=== PATIENT | male | born 1970 | race African-American/Black ===

== ENCOUNTER 2018-12-16 19:09 | Inpatient (IN) ==
[2018-12-16] MEDS ORDERED: SODIUM CHLORIDE 0.9% 1,000 ML IV STA (19:45)
[2018-12-16] MEDS ORDERED: METOPROLOL TARTRATE 5 MG/5 ML VIAL IV STA (19:46)
[2018-12-16] MEDS ORDERED: ALBUTEROL/IPRATROPIUM 3 ML NEB RESP TX STA (19:46)
[2018-12-16] MEDS ORDERED: ACETAMINOPHEN 500 MG TABLET PO STA (19:46)
[2018-12-16 19:52] LABS: Basophils % 0.3 % (0.0-0.8); Eosinophils % 0.1 % (0.00-10.9); Hematocrit 48.7 VOL% (42.0-52.0); Hemoglobin 15.7 GM/DL (14.0-18.0); Immature Granulocytes % 0.3 %; Immature Granulocytes Absolute 0.04 #; Lymphocytes # 0.7 10*3/uL (1.4-4.0); Lymphocytes % 5.9 % (21.2-54.2); Mean Corpuscular HGB Conc 32.2 GM/DL (32-36); Mean Corpuscular Hemoglobin 29 PG (27-34); Mean Corpuscular Volume 88.7 FL (87-102); Mean Platelet Volume 10.7 FL (9.6-12.0); Monocytes # 0.8 10*3/uL (0.11-0.8); Monocytes % 6.8 % (1.7-12.7); Neutrophils # 10.2 10*3/uL (1.4-7.4); Neutrophils % 86.6 % (38.7-73.9); Platelet Count 220 T/CUMM (130-400); Red Blood Count 5.49 MC/CUMM (3.8-5.5); Red Cell Distribution Width 13.9 % (9.3-17.3); White Blood Count 11.7 T/CUMM (4-12)
[2018-12-16 20:17] LABS: Albumin 3.9 G/DL (3.4-5.0); Bilirubin,Total 0.6 MG/DL (0.2-1.0); Calcium 9.1 MG/DL (8.5-10.1); Osmolality,Calculated 266.4 MOS/KG (273-304); Potassium 4.3 MMOL/L (3.5-5.1); Total Protein 9.2 G/DL (6.4-8.3)
[2018-12-16 20:21] LABS: ABG Base Excess 3.7 MMOL/L (-2.5-2.5); ABG HCO3 27.5 MMOL/L (20-26); ABG Oxygen Saturation 92.2 % (95-100); ABG PCO2 43.6 MM HG (35-48); ABG PH 7.426 (7.35-7.45); ABG PO2 65.3 MM HG (80-95); ABG TCO2 24.2 MMOL/L (23-27); Allen Test Positive
[2018-12-16] MEDS ORDERED: LEVOFLOXACIN INJ 500 MG in PREMIX 1 EACH IV STA (21:26)
[2018-12-16] MEDS ORDERED: ONDANSETRON 4 MG/2 ML VIAL IV PRN (22:03)
[2018-12-16] MEDS ORDERED: ACETAMINOPHEN 325 MG TABLET PO PRN (22:03)
[2018-12-16] MEDS ORDERED: cloNIDine 0.1 MG TABLET PO PRN (23:36)
[2018-12-17 03:22] LABS: Apearance,Urine CLEAR (Clear); Bilirubin,Urine Negative (Negative); Blood, Urine Negative (Negative); Glucose,Urine (UA) Negative (Negative); Ketones,Urine Negative (Negative); Mucus,Urine Occasional /LPF (Occasional); Nitrite,Urine Negative (Negative); Protein,Urine Negative; RBC,Urine <1 /HPF (0-4); Urine Color Yellow (Yellow); Urine Specific Gravity 1.036 (1.001-1.035); WBC,Urine <1 /HPF (0-6)
[2018-12-17] MEDS: ALBUTEROL/IPRATROPIUM 3 ML NEB RESP TX SCH ×6 (03:40→23:59)
[2018-12-17 04:26] LABS: Basophils % 0.2 % (0.0-0.8); Eosinophils % 0.1 % (0.00-10.9); Hematocrit 46.4 VOL% (42.0-52.0); Hemoglobin 14.9 GM/DL (14.0-18.0); Immature Granulocytes % 0.8 %; Immature Granulocytes Absolute 0.09 #; Lymphocytes % 8.9 % (21.2-54.2); Mean Corpuscular HGB Conc 32.1 GM/DL (32-36); Mean Corpuscular Hemoglobin 29 PG (27-34); Mean Corpuscular Volume 88.7 FL (87-102); Mean Platelet Volume 10.8 FL (9.6-12.0); Monocytes % 9.1 % (1.7-12.7); Neutrophils # 9.1 10*3/uL (1.4-7.4); Neutrophils % 80.9 % (38.7-73.9); Platelet Count 200 T/CUMM (130-400); Red Blood Count 5.23 MC/CUMM (3.8-5.5); Red Cell Distribution Width 14.2 % (9.3-17.3); White Blood Count 11.3 T/CUMM (4-12)
[2018-12-17 04:49] LABS: Calcium 8.9 MG/DL (8.5-10.1); Osmolality,Calculated 262.5 MOS/KG (273-304); Potassium 3.8 MMOL/L (3.5-5.1)
[2018-12-17 04:53] LABS: CKMB % 1.1 %; Troponin I < 0.015 NG/ML (0.00-0.045)
[2018-12-17 09:32] LABS: CKMB % 1.1 %; Troponin I < 0.015 NG/ML (0.00-0.045)
[2018-12-17] MEDS: METOPROLOL TARTRATE 25 MG TABLET PO SCH ×2 (09:36→22:02)
[2018-12-17] MEDS: PANTOPRAZOLE 40 MG TABLET PO SCH (09:36)
[2018-12-17] MEDS: LEVOFLOXACIN INJ 500 MG in PREMIX 1 EACH IV SCH (22:24)
[2018-12-18] MEDS: ALBUTEROL/IPRATROPIUM 3 ML NEB RESP TX SCH ×6 (03:31→23:29)
[2018-12-18 05:48] LABS: Basophils % 0.2 % (0.0-0.8); Eosinophils % 0.6 % (0.00-10.9); Hemoglobin 14.3 GM/DL (14.0-18.0); Immature Granulocytes % 0.5 %; Immature Granulocytes Absolute 0.03 #; Lymphocytes # 1.1 10*3/uL (1.4-4.0); Lymphocytes % 15.9 % (21.2-54.2); Mean Corpuscular HGB Conc 31.8 GM/DL (32-36); Mean Corpuscular Hemoglobin 29 PG (27-34); Mean Platelet Volume 10.8 FL (9.6-12.0); Monocytes # 0.7 10*3/uL (0.11-0.8); Monocytes % 11.2 % (1.7-12.7); Neutrophils # 4.7 10*3/uL (1.4-7.4); Neutrophils % 71.6 % (38.7-73.9); Platelet Count 217 T/CUMM (130-400); Red Cell Distribution Width 13.8 % (9.3-17.3); White Blood Count 6.6 T/CUMM (4-12)
[2018-12-18 06:09] LABS: Calcium 9.3 MG/DL (8.5-10.1); Osmolality,Calculated 263.5 MOS/KG (273-304); Potassium 3.7 MMOL/L (3.5-5.1)
[2018-12-18] MEDS ORDERED: FUROSEMIDE 40 MG/4 ML VIAL IV ONE (09:15)
[2018-12-18] MEDS ORDERED: SACUBITRIL/VALSARTAN 49-51 MG TABLET PO SCH (09:30)
[2018-12-18] MEDS ORDERED: CARVEDILOL 3.125 MG TABLET PO SCH (09:30)
[2018-12-18] MEDS: PANTOPRAZOLE 40 MG TABLET PO SCH (09:35)
[2018-12-18 11:45] LABS: Amylase 45 U/L (25-115); Troponin I < 0.015 NG/ML (0.00-0.045)
[2018-12-18] MEDS ORDERED: METHOCARBAMOL 500 MG TABLET PO PRN (15:53)
[2018-12-18] MEDS ORDERED: FUROSEMIDE 40 MG TABLET PO SCH (16:00)
[2018-12-18] MEDS: METOPROLOL TARTRATE 25 MG TABLET PO SCH (20:20)
[2018-12-18] MEDS: LEVOFLOXACIN INJ 500 MG in PREMIX 1 EACH IV SCH (22:21)
[2018-12-19 02:25] LABS: Basophils % 0.3 % (0.0-0.8); Eosinophils % 0.7 % (0.00-10.9); Hematocrit 45.4 VOL% (42.0-52.0); Hemoglobin 14.4 GM/DL (14.0-18.0); Immature Granulocytes % 0.5 %; Immature Granulocytes Absolute 0.03 #; Lymphocytes # 1.1 10*3/uL (1.4-4.0); Lymphocytes % 18.9 % (21.2-54.2); Mean Corpuscular HGB Conc 31.7 GM/DL (32-36); Mean Corpuscular Hemoglobin 28 PG (27-34); Mean Corpuscular Volume 88.7 FL (87-102); Mean Platelet Volume 10.2 FL (9.6-12.0); Monocytes # 0.8 10*3/uL (0.11-0.8); Monocytes % 13.5 % (1.7-12.7); Neutrophils # 3.9 10*3/uL (1.4-7.4); Neutrophils % 66.1 % (38.7-73.9); Platelet Count 224 T/CUMM (130-400); Red Blood Count 5.12 MC/CUMM (3.8-5.5); Red Cell Distribution Width 13.3 % (9.3-17.3); White Blood Count 5.9 T/CUMM (4-12)
[2018-12-19 02:44] LABS: Albumin 3.1 G/DL (3.4-5.0); Calcium 8.9 MG/DL (8.5-10.1); Osmolality,Calculated 261.8 MOS/KG (273-304); Potassium 3.7 MMOL/L (3.5-5.1); Total Protein 8.8 G/DL (6.4-8.3)
[2018-12-19] MEDS: ALBUTEROL/IPRATROPIUM 3 ML NEB RESP TX SCH ×2 (03:34→07:40)
[2018-12-19] MEDS ORDERED: glipiZIDE 5 MG TABLET PO SCH (07:30)
[2018-12-19 08:03] VITALS: BP 109/75
[2018-12-19] MEDS ORDERED: POTASSIUM CHLORIDE 20 MEQ TABLET PO ONE (09:52)
[2018-12-19] MEDS: METOPROLOL TARTRATE 25 MG TABLET PO SCH (10:03)
[2018-12-19] MEDS: PANTOPRAZOLE 40 MG TABLET PO SCH (10:04)
== END 2018-12-19 10:35 | disposition home or self-care (01) | DRG 194 ==
LOC: N.ED 19:09 → N.EDINP 22:03 → SUATTDRO 22:03 → N.EDINP 23:04 → N.TELEN 12-17 00:06
PROVIDERS: ADMIT Internal Medicine; ATTEND Family Medicine